=== PATIENT | female | born 1940 | race African-American/Black ===

== ENCOUNTER 2019-02-20 15:21 | Inpatient (IN) | payer MEDICARE, OTHER ==
[~2019-02-20] VITALS: Ht 165.1 cm; Wt 79.2 kg
[2019-02-20 15:30] VITALS: BP 140/80
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
[2019-02-20] MEDS ORDERED: Haloperidol 5mg/ml Inj IM ONE (16:00)
[2019-02-20 16:25] LABS: EOSINOPHILS % (AUTO) 0.9 % (0.0-3.0); HEMATOCRIT 41.6 % (37.0-47.0); HEMOGLOBIN 13.9 G/DL (12.0-16.0); MEAN CORPUSCULAR VOLUME 86 FL (80-99); MONOCYTES % (AUTO) 7.8 % (1.0-10.0); NEUTROPHILS % (AUTO) 65.3 % (45.0-75.0); PLATELET COUNT 218 K/UL (150-450); RED BLOOD COUNT 4.82 M/UL (4.20-5.40); RED CELL DISTRIBUTION WIDTH 11.1 % (11.6-14.8)
[2019-02-20 16:43] LABS: ALANINE AMINOTRANSFERASE 37 U/L (12-78); ALBUMIN 3.4 G/DL (3.4-5.0); ALBUMIN/GLOBULIN RATIO 0.8 (1.0-2.7); ALKALINE PHOSPHATASE 92 U/L (46-116); ANION GAP 5 mmol/L (5-15); ASPARTATE AMINO TRANSFERASE 33 U/L (15-37); BILIRUBIN,TOTAL 0.2 MG/DL (0.2-1.0); BLOOD UREA NITROGEN 29 mg/dL (7-18); CALCIUM 9.4 MG/DL (8.5-10.1); CARBON DIOXIDE 32 MMOL/L (21-32); CHLORIDE 103 MMOL/L (98-107); CREATININE 0.9 MG/DL (0.55-1.30); POTASSIUM 3.1 MMOL/L (3.5-5.1); SODIUM 140 MMOL/L (136-145)
--- NOTE | 2019-02-20 16:53 | NUR ---
ED Nurse Note: BG recheck by finger stick is 47. Notified Dr. Quintanilla [place] juice and sandwich given to patient.
[2019-02-20] MEDS ORDERED: D5 1/2NS 1,000 ML IV SCH (17:00)
[2019-02-20] MEDS ORDERED: LORazepam Inj 2mg/ml 1ml ONE (17:22)
[2019-02-20] MEDS ORDERED: LORazepam Inj 2mg/ml 1ml IV ONE (17:30)
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
--- NOTE | 2019-02-20 19:05 | NUR ---
ED Nurse NOTES: PT IS AOX3 AND REFUSED CT PER ERMD. INFORMED ERMD. ERMD IS AWARE AND SPOKE TO PT.
--- NOTE | 2019-02-20 19:18 | NUR ---
HAND-OFF: Report given to Shazia. Endorsed pending CT scan.
--- NOTE | 2019-02-20 19:39 | NUR ---
ED Nurse Note: TELEPHONE REPORT GIVEN TO NIKI MENA FOR CONTINUITY OF CARE.
--- NOTE | 2019-02-20 19:50 | NUR ---
TRANSFER TO FLOOR: Patient transferred to as ordered, per ERMD . Report given to NIKI MENA. Belongings SENT WITH PT
--- NOTE | 2019-02-20 19:55 | NUR ---
NURSE NOTES: Patient came from ER via gurney. A&OX4. IV site patent and intact. Skin intact. Belongings are checked. Bed in lowest position. Patient refused VS check at this time. Call light within reach. Will continue to monitor.
--- NOTE | 2019-02-20 20:00 | NUR ---
NURSE NOTES: Patient unsteady gait. Patient refused to change gown and wear yellow socks. Fall risk sign on, yellow wrist band on. Will continue to monitor.
[2019-02-20] MEDS ORDERED: Dextrose 10% 1,000 ML IV SCH (21:00)
[2019-02-20 22:00] VITALS: BP 147/77
[2019-02-20] MEDS: NovoLOG Insulin Flexpen SUBQ SCH (22:27)
[2019-02-21] VITALS: BP 156/70
[2019-02-21] MEDS ORDERED: HUMULIN N100 UNIT/1 SUBQ (00:18)
[2019-02-21] MEDS ORDERED: HUMALOG 75/255 UNIT1 SUBQ (00:24)
[2019-02-21 04:00] VITALS: BP 155/87
--- NOTE | 2019-02-21 04:00 | NUR ---
NURSE NOTES: Patient refused IV fluid. Explained riak and benefit but still refused. Will try again.
[2019-02-21 06:26] LABS: EOSINOPHILS % (AUTO) 2.9 % (0.0-3.0); HEMATOCRIT 39.6 % (37.0-47.0); HEMOGLOBIN 12.8 G/DL (12.0-16.0); LYMPHOCYTES % (AUTO) 32.8 % (20.0-45.0); MEAN CORPUSCULAR VOLUME 89 FL (80-99); MONOCYTES % (AUTO) 9.9 % (1.0-10.0); NEUTROPHILS % (AUTO) 53.5 % (45.0-75.0); PLATELET COUNT 212 K/UL (150-450); RED BLOOD COUNT 4.43 M/UL (4.20-5.40); RED CELL DISTRIBUTION WIDTH 12.7 % (11.6-14.8); WHITE BLOOD COUNT 5.9 K/UL (4.8-10.8)
[2019-02-21] MEDS: NovoLOG Insulin Flexpen SUBQ SCH (06:30)
[2019-02-21 06:42] LABS: ANION GAP 6 mmol/L (5-15); BLOOD UREA NITROGEN 23 mg/dL (7-18); CALCIUM 9.3 MG/DL (8.5-10.1); CARBON DIOXIDE 31 MMOL/L (21-32); CHLORIDE 107 MMOL/L (98-107); POTASSIUM 4.3 MMOL/L (3.5-5.1); SODIUM 143 MMOL/L (136-145)
--- NOTE | 2019-02-21 07:20 | NUR ---
HAND-OFF: Report given to Yissel PRINCE.
--- NOTE | 2019-02-21 07:59 | NUR ---
NURSE NOTES: Patient is awake and alert and oriented respirations unlabored.Patient up and doing AM care.DR Samson was here and patient will be discharge.Patient state she lives in the [facility].Patient state she lives in her car,DR Samson is aware.Will notify Case Management.
--- NOTE | 2019-02-21 10:30 | NUR ---
*-* INSURANCE *-* ALL AVAILABLE CLINICALS HAVE BEE FAXED TO: [facility] CM: IRON #[phone] FAX#[phone] [facility] Addendum: 02/21/19 at 1121 by RACHELL PEREZ CM REF# [id number]
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
--- NOTE | 2019-02-21 11:49 | NUR ---
NURSE NOTES: Patient discharge at this time,patient has discharge instructions.Patient has her personal belongings.IV removed ,ID hospital band removed.patient was given information ,patient state she lives with her brother but sometimes they do not get along onsite case manager Omid notified and patient was given information for help with housing if needed.Patient was given a taxi voucher.Patient state she does live with her brother.
--- NOTE | 2019-02-21 12:01 | NUR ---
NURSE NOTES: patient refuse CT of head as ordered.
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
== END 2019-02-21 11:50 | disposition home or self-care (01) | DRG 639 ==
LOC: EDBD 15:21 → EDUNIT# 15:21 → EMR 15:58 → 4E 18:26 → EDBEDREQ 19:02
DX: E11.649 Type 2 diabetes mellitus with hypoglycemia without coma (principal); Z79.4 Long term (current) use of insulin
CPT/HCPCS: 36415; 80048; 80053; 80307; 82962; 85025; 96365; 96366; 96372; 96375; 99285; G0480; J1815; J8499